=== PATIENT | male | born 1950 | race Caucasian/White ===

== ENCOUNTER 2016-11-21 07:16 | Day surgery (SDC) | payer OTHER ==
--- NOTE | 2016-11-21 08:50 | Operative Note ---
Colonoscopy ([facility]) Procedure date: 11/21/16 Date of : 54 Procedure:Colonoscopy Colonoscopy with cold snare polypectomy Indications: Mr. Alfaro is a 66-year-old gentleman who is here for follow-up screening/ surveillance colonoscopy. The patient did have colon polyps dating back to December 1999 at which time he had a polyp that was a tubular adenoma with moderate dysplasia which was removed. In January 2007 he had a tubulovillous adenoma removed. He was diagnosed with kidney and thyroid cancer in 2007 and had thyroidectomy and nephrectomy. The patient had his last colonoscopy in April 2013 at which time diminutive polyps were removed. He reports no abdominal pain, weight loss, change in his bowel habits or rectal bleeding. He reports no family history of colon cancer. He does have some intermittent functional diarrhea. Performing Provider: Rangel Starr MD Referrring Provider: José Miguel Thornton M.D. Sedation: Fentanyl 150 mg IV/Versed 7 mg IV Procedure: Prior to the procedure, a history and physical exam was performed, and patient medications and allergies were reviewed. The risks and benefits of the procedure and the sedation options and risks were discussed with the patient. All questions were answered and informed consent was obtained. Patient identification and proposed procedure were verified by the physician and the nurse. The patient was placed in a left lateral decubitus position. Throughout the procedure, the patient's blood pressure, pulse, and oxygen saturations were monitored continuously. Findings: On digital rectal examination there was normal rectal tone. There were no external hemorrhoids. The prostate was 2+, smooth, soft, minimally asymmetric without nodules. The colonoscope was introduced through the anal canal to the rectum and advanced to the cecum. The ileocecal valve and appendiceal orifice were identified. The scope was advanced a short distance into the ileum which appeared grossly normal. The scope was then withdrawn into the colon. The cecum, ascending, transverse, descending and sigmoid were grossly normal. There were no mucosal abnormalities identified. There was a single 6 mm polyp in the rectum removed via cold snare polypectomy. Upon retroflexion within the rectum there were grade 1 internal hemorrhoids. Impressions: 1. Rectal polyp 2. Grade 1 internal hemorrhoids Recommendations: I will follow up the polyp pathology and recommend repeat colonoscopy again in 5 years based upon the polyp histology and the patient's prior advanced adenomatous colon polyps. I would encourage a probiotic and fiber bulk supplementation on a long-term daily maintenance basis. Complications: None EBL (ml): 0 at 0850
[2016-11-21 14:36] VITALS: BP 120/70
== END 2016-11-21 09:50 | disposition home or self-care (01) ==
LOC: SDC 07:16
PROVIDERS: Internal Medicine Gastroenterology
PROC: 0DBP8ZX Excision of Rectum, Via Natural or Artificial Opening Endoscopic, Diagnostic (ICD-10-PCS; principal; 2016-11-21 08:30)
DX: Z12.11 Encounter for screening for malignant neoplasm of colon (principal); Z86.010 Personal history of colon polyps; Z85.850 Personal history of malignant neoplasm of thyroid; Z85.528 Personal history of other malignant neoplasm of kidney; K62.1 Rectal polyp; K64.0 First degree hemorrhoids